=== PATIENT | female | born 1985 | race Hispanic/Latino ===

== ENCOUNTER 2020-07-10 11:28 | Outpatient (CLI) | payer OTHER ==
[2020-07-10 12:26] LABS: Basophils # (Auto) 0.1 K/mm3 (0.0-0.1); Basophils % (Auto) 0.9 % (0.0-1.8); Eosinophils # (Auto) 0.4 K/mm3 (0.0-0.4); Eosinophils % (Auto) 4.8 % (0.0-4.3); Hemoglobin 11.7 gm/dl (10.1-14.3); Lymphocytes # (Auto) 2.8 K/mm3 (1.2-5.4); Lymphocytes % (Auto) 30.5 % (13.4-35.0); Mean Corpuscular HGB Conc 34 % (30-34); Mean Corpuscular Volume 87 fl (79-97); Monocytes # (Auto) 0.5 K/mm3 (0.0-0.8); Monocytes % (Auto) 5.7 % (0.0-7.3); Platelet Count 219 K/mm3 (140-440); Red Blood Count 4.02 M/mm3 (3.65-5.03)
[2020-07-10 12:38] LABS: Alanine Aminotransferase 141 units/L (7-56); Albumin 4.5 g/dL (3.9-5); BUN/Creatinine Ratio 14; Blood Urea Nitrogen 11 mg/dL (7-17); Calcium 9.6 mg/dL (8.4-10.2); Chol/HDL Ratio 3.45 %; HDL Cholesterol 66 mg/dL (40-59); Hemolysis Index 0; Iron 31 ug/dL (37-170); LDL Cholesterol,Direct 155 mg/dL (50-130); Total Iron Binding Capacity 484 mcg/dL (250-450)
[2020-07-15 05:51] LABS: Vitamin D, 25-OH, D2 <4 ng/mL
== END 2020-07-10 11:29 | disposition home or self-care (01) ==
LOC: LAB 11:28
PROVIDERS: ATTEND Surgery
DX: E11.9 Type 2 diabetes mellitus without complications (principal); E66.01 Morbid (severe) obesity due to excess calories; K30 Functional dyspepsia; E55.9 Vitamin D deficiency, unspecified; K90.9 Intestinal malabsorption, unspecified
CPT/HCPCS: 36415; 80053; 80061; 82306; 82607; 82728; 83036; 83550; 84443; 85025; 85730

== ENCOUNTER 2020-09-01 09:43 | Outpatient (CLI) | payer OTHER ==
--- NOTE | 2020-09-01 11:49 | Fluoroscopy Report ---
BARIUM SWALLOW Indication: MORBID OBESITY. Technique: Single and double contrast barium technique utilized to evaluate the esophagus. FINDINGS: To begin the exam, swallowing was evaluated in the lateral position under direct fluorosco py. Swallowing was normal. No mucosal irregularity, mass, mass effect, or critical stenosis. There were no abnormal tertiary c ontractions as seen with dysmotility. No gastroesophageal reflux. IMPRESSION: Unremarkable exam. Fluoroscopic time: 0.8 minutes Number of fluoroscopic images: 40 Signer Name: Jens Aiken Jr, MD Signed: 09/01/2020 11:45 AM Workstation Name: [id number]
== END 2020-09-01 09:44 | disposition home or self-care (01) ==
LOC: FLUORO 09:43
PROVIDERS: ATTEND Surgery
DX: E66.01 Morbid (severe) obesity due to excess calories (principal)
CPT/HCPCS: 74220